=== PATIENT | female | born 1995 | race Caucasian/White ===

== ENCOUNTER → 2017-03-06 13:25 | Outpatient (CLI) | payer MEDICAID, SELFPAY ==
[2017-03-06 15:26] LABS: Chlamydia Trachomatis by PCR Negative (Negative); Neisserai gonorrhoeae by PCR Negative (Negative); Probe Check PASS; Sample Adequacy Control PASS; Specimen Processing Control PASS
== END ==
PROVIDERS: Visit Provider Obstetrics & Gynecology
DX: Z34.83 Encounter for supervision of other normal pregnancy, third trimester (principal); Z11.3 Encounter for screening for infections with a predominantly sexual mode of transmission
CPT/HCPCS: 87491; 87591

== ENCOUNTER → 2017-04-03 15:43 | Outpatient (CLI) | payer MEDICAID, SELFPAY ==
[2017-04-03 17:43] LABS: Absolute Lymphocyte Count 2.64 X10^3/ul (0.83-4.51); Absolute Neutrophil Count 9.2 X10^3/uL (2.0-7.7); Basophil# 0.02 X10^3/uL; Basophil% 0.2 % (0-1); Eosinophil# 0.13 X10^3/uL; Hematocrit 39.4 % (37-47); Hemoglobin 13.4 g/dl (12.0-15.0); Lymphocyte # 2.64 X10^3/ul (4.0); Lymphocyte % 20.5 % (19-41); Mean Corpuscular Volume 88.3 fL (81-99); Mean Platelet Vol. 10.3 fl (6.2-12.0); Monocyte# 0.82 X10^3/uL; Monocyte% 6.4 % (0-10); Neutrophil % 71.6 % (47-70); POSITIVE COUNT NO; POSITIVE DIFFERENTIAL NO; POSITIVE MORPHOLOGY NO; Platelet Count 230 K/mm3 (150-450); RBC Distribution Width CV 13.2 % (11.6-14.6); RBC Distribution Width SD 42.4 fl (35.1-43.9); Red Blood Count 4.46 M/mm3 (4.2-5.4); White Blood Count 12.9 K/mm3 (4.4-11.0)
[2017-04-03 18:05] LABS: Thyroid Stim Hormone (TSH) 1.52 uIU/mL (0.358-3.74)
[2017-04-03 18:20] LABS: Color, Urine Straw (Yellow); Glucose, Dipstick Normal (Normal); Ketone-Dipstick Negative (Negative); Leukocyte Esterase-Dipstick Negative /ul (Negative); Nitrite-Dipstick Negative (Negative); Occult Blood-Urine 10 /ul (Negative); Protein-Dipstick Negative (Negative); Specific Gravity, Urine 1.015 (1.002-1.030); Urine Bilirubin Dipstick Negative (Negative); Urine Clarity Clear (Clear); Urine Urobilinogen Normal (Normal); Urine pH 6.5 (5.0 - 8.0)
[2017-04-03 18:21] LABS: Amphetamine Urine VISTA NEGATIVE (<1000 ng/mL); Barbiturate Urine VISTA NEGATIVE (< 200 ng/mL); Benzodiazepine Urine VISTA NEGATIVE (< 200 ng/mL); Cocaine Urine VISTA NEGATIVE (< 300 ng/mL); Ecstacy Urine VISTA NEGATIVE (< 500 ng/mL); Methadone Urine VISTA NEGATIVE (< 300 ng/mL); PCP Urine VISTA NEGATIVE (< 25 ng/mL); THC Urine VISTA NEGATIVE (< 50 ng/mL); Vista UDS pH Range 6
[2017-04-04 10:25] LABS: HIV - WCH Non-Reactive (Nonreactive); Rubella IgG > 500.0 IU/mL
[2017-04-04 17:35] LABS: Vitamin D,25 Hydroxy 19.8 ng/mL (29.95-100.01)
[2017-04-04 18:06] LABS: ALB/GLOB Ratio 0.8 RATIO (0.9-2.4); AST(SGOT) 24 U/L (15-37); Alanine Aminotransfer ALT/SGPT 40 U/L (13-56); Albumin, Serum 3.3 g/dL (3.2-5.0); Alkaline Phosphatase 81 U/L (45-117); Anion Gap 14 (5-15); BUN 6 mg/dL (7-18); BUN/Creat Ratio 11.8 RATIO (10-20); Chloride 105 mmol/L (98-107); Creatinine, Serum 0.51 mg/dL (0.55-1.02); EST Glomerular Filtration Rate 164 mL/min (>60); Est Glom Filt Rate - Afr Amer 199 mL/min (>60); Glucose 71 mg/dL (74-106); Potassium 3.7 mmol/L (3.5-5.1); Protein, Total 7.3 g/dL (6.4-8.2); Sodium Level 139 mmol/L (136-145)
[2017-04-05 09:33] LABS: HEPATITIS B SURFACE AG Negative (Negative); Hep C Antibodies <0.1 s/co ratio (0.0-0.9)
[2017-04-06 02:54] LABS: Prenatal RPR NONREACTIVE (NONREACTIVE)
== END ==
PROVIDERS: Visit Provider Obstetrics & Gynecology
DX: Z34.82 Encounter for supervision of other normal pregnancy, second trimester (principal)
CPT/HCPCS: 36415; 80053; 80307; 81002; 82306; 84443; 85025; 86703; 86762; 86803; 87340

== ENCOUNTER → 2017-06-05 11:17 | Outpatient (CLI) | payer MEDICAID, SELFPAY ==
[2017-06-05 14:00] LABS: Hematocrit 39.2 % (37-47); Mean Corp Hgb Conc 33.2 g/gl (32-36); Mean Corpuscular Hgb 30.2 pg (27.0-32.0); Mean Platelet Vol. 10.6 fl (6.2-12.0); Platelet Count 211 K/mm3 (150-450); RBC Distribution Width SD 42.5 fl (35.1-43.9); Red Blood Count 4.31 M/mm3 (4.2-5.4); White Blood Count 12.5 K/mm3 (4.4-11.0)
[2017-06-05 14:01] LABS: Glucose Challenge Gest 1H 50g 84 mg/dL (70-140); Scan Indicated on CBC? Y/N NO
[2017-06-06 08:41] LABS: Vitamin D,25 Hydroxy 17.9 ng/mL (29.95-100.01)
== END ==
PROVIDERS: Visit Provider Obstetrics & Gynecology
DX: Z34.82 Encounter for supervision of other normal pregnancy, second trimester (principal)
CPT/HCPCS: 82306; 82950; 85027

== ENCOUNTER → 2017-07-31 15:17 | Outpatient (CLI) | payer MEDICAID, SELFPAY ==
[2017-07-31 17:38] LABS: Group B Strep DNA By PCR Negative (Negative)
[2017-07-31 17:39] LABS: Internal Control PASS; Probe Check PASS; Specimen Processing Control PASS
== END ==
PROVIDERS: Visit Provider Obstetrics & Gynecology
DX: Z36.85 Encounter for antenatal screening for Streptococcus B (principal)
CPT/HCPCS: 87077; 87081; 87186; 87653

== ENCOUNTER → 2017-08-28 18:25 | Outpatient (CLI) | payer MEDICAID, SELFPAY ==
[2017-08-28 18:27] LABS: Bacteria 0 SEEN /hpf (None Seen); Mucous, Urine 0 SEEN /hpf (<or=2+); Red Blood Cells-Urine 0 SEEN /hpf (0-5)
[2017-08-28 19:17] LABS: Color, Urine Yellow (Yellow); Glucose, Dipstick 50 mg/dl (Normal); Ketone-Dipstick Negative (Negative); Leukocyte Esterase-Dipstick 500 /ul (Negative); Nitrite-Dipstick Negative (Negative); Occult Blood-Urine 25 /ul (Negative); Protein-Dipstick 30 mg/dl (Negative); Specific Gravity, Urine 1.025 (1.002-1.030); Urine Bilirubin Dipstick Negative (Negative); Urine Clarity Clear (Clear); Urine Urobilinogen 1 mg/dl (Normal)
[2017-08-28 19:23] LABS: White Blood Cells 10-25 SEEN /hpf (0-5)
[2017-08-28 19:24] LABS: Calcium Oxalate Crystals Ur 1+ /hpf (<or=2+); Squamous Epithelial Cells - UA 5-10 SEEN /hpf (5-10)
== END ==
PROVIDERS: Visit Provider Obstetrics & Gynecology
DX: O23.43 Unspecified infection of urinary tract in pregnancy, third trimester (principal); Z3A.00 Weeks of gestation of pregnancy not specified
CPT/HCPCS: 81001; 87086; 87088; 87186

== ENCOUNTER 2017-09-01 18:35 | Outpatient (CLI) | payer MEDICAID, SELFPAY ==
[2017-09-01 19:43] VITALS: BMI 35.6
--- NOTE | 2017-09-02 08:09 | OB.TRI.NOTE ---
History of Present Illness Date of Service: 09/01/17 Was patient seen by the physician?: No Reason For Visit: R/O LABOR Date of Service: 09/01/17 Final MAMTA: 09/01/17 Final MAMTA Source: US <20 weeks Gestational age: 40 Weeks and 1 Days History of Present Illness: c/o contractions. No leaking fluid. Good movement. Allergies No Known Allergies Allergy (Verified 09/01/17 19:44) Physical Exam General: Alert, Oriented x3, Cooperative, No apparent distress Cardiovascular: Regular rate, Regular Rhythm Lungs: Clear to auscultation, Normal air movement Abdomen: Soft, Non Tender, Non-Distended, Gravid, Appropriate for Gestational Age Extremities:: No edema Neurological: Neuro grossly intact DISHWASHER PREPARER: Normal external genitalia Estimated gestational size: Appropriate for gestational size Presentation: Cephalic Cervix Dilation (cm): 3 Station: -2 Effacement (%): 70 NST - FHR Rate Baby A Baseline: 150s Variability:: Moderate Accelerations:: 15 x 15 Decelerations:: None NST Reactive:: Yes, Appropriate for gestational age FHR Category:: Category I Uterine Activity:: q2 to 5 minutes Impression/Plan No cervical blade changer 2+ hours of observation and cervix unchanged from previous office exams. Will return if labor symptoms increase or has signs of SROM.
--- NOTE | 2017-09-02 08:13 | OB.TRI.HP_ITS ---
History of Present Illness Date of Service: 09/01/17 Was patient seen by the physician?: No Reason For Visit: R/O LABOR Date of Service: 09/01/17 Final MAMTA: 09/01/17 Final MAMTA Source: US <20 weeks Gestational age: 40 Weeks and 1 Days History of Present Illness: c/o contractions. No leaking fluid. Good movement. Allergies No Known Allergies Allergy (Verified 09/01/17 19:44) Physical Exam General: Alert, Oriented x3, Cooperative, No apparent distress Cardiovascular: Regular rate, Regular Rhythm Lungs: Clear to auscultation, Normal air movement Abdomen: Soft, Non Tender, Non-Distended, Gravid, Appropriate for Gestational Age Extremities:: No edema Neurological: Neuro grossly intact GAS DISPATCHER: Normal external genitalia Estimated gestational size: Appropriate for gestational size Presentation: Cephalic Cervix Dilation (cm): 3 Station: -2 Effacement (%): 70 NST - FHR Rate Baby A Baseline: 150s Variability:: Moderate Accelerations:: 15 x 15 Decelerations:: None NST Reactive:: Yes, Appropriate for gestational age FHR Category:: Category I Uterine Activity:: q2 to 5 minutes Impression/Plan No cervical oil change technician 2+ hours of observation and cervix unchanged from previous office exams. Will return if labor symptoms increase or has signs of SROM.
== END 2017-09-01 21:15 | disposition home or self-care (01) ==
LOC: WPOUT 19:12 → WP 09-03 07:38
PROVIDERS: Visit Provider Obstetrics & Gynecology
DX: O47.1 False labor at or after 37 completed weeks of gestation (principal); Z3A.40 40 weeks gestation of pregnancy
CPT/HCPCS: 59025; 59050; 99218; G0378

== ENCOUNTER 2017-09-07 08:45 | Inpatient (IN) | payer MEDICAID, SELFPAY ==
[2017-09-07 09:00] VITALS: BMI 34.3
[2017-09-07] MEDS: Lactated Ringers 1,000 ML 50 ML IV ×4 (09:25→15:22)
[2017-09-07 09:40] LABS: Hematocrit 39.4 % (37-47); Hemoglobin 13.2 g/dl (12.0-15.0); Mean Corp Hgb Conc 33.5 g/gl (32-36); Mean Corpuscular Hgb 29.5 pg (27.0-32.0); Mean Corpuscular Volume 88.1 fL (81-99); Mean Platelet Vol. 10.3 fl (6.2-12.0); Platelet Count 187 K/mm3 (150-450); RBC Distribution Width CV 13.7 % (11.6-14.6); Red Blood Count 4.47 M/mm3 (4.2-5.4); White Blood Count 12.3 K/mm3 (4.4-11.0)
[2017-09-07 09:46] LABS: Scan Indicated on CBC? Y/N NO
[2017-09-07] MEDS: Oxytocin 30 units/NS 500 ml 30 UNITS/500 ML IV.SOLN IV (10:49)
[2017-09-07] MEDS: fentaNYL-bupivacaine (epidural) 100 ML BAG EPIDURAL ×2 (12:30→17:20)
--- NOTE | 2017-09-07 13:31 | PCM.PN.BLA ---
Progress Note LABOR PROGRESS NOTE No pain relief with epidural. AVSS GEN - NAD, AAO x 3 SVE 7/90/-3, cephalic TOCO 3-4/10 min FHR 130, moderate variability, + accelerations, + variable decelerations A/P: 22yo G1 @ 41wga in active labor, Cat II FHR -Maternal and statuses reassuring -Anesthesiology reconsult -Continue in labor
--- NOTE | 2017-09-07 14:36 | PCM.PN.BLA ---
Progress Note LABOR PROGRESS NOTE She is more comfortable with repeat epidural. RN called for prolonged heart rate deceleration. AVSS GEN - NAD, AAO x 3 FHR with 6 minutes prolonged deceleration nadiring to 60 bpm, FHR 130, moderate variability, + decelerations prior to that TOCO 3/10 min SVE 7/90/-3, soft, cephalic A/P: 22yo G1 @ 41wga in active labor, Cat II FHR -FHR recovered with pitocin discontinuation, maternal repositioning and O2 supplementation -Amniotomy performed with meconium. IUPC to be placed to further characterize decelerations late vs. early -Will monitor closely
--- NOTE | 2017-09-07 15:51 | NURSING ---
Dr Sheppard recalled at 1150.
[2017-09-07] MEDS: Oxytocin 30 units/NS 500 ml 30 UNITS/500 ML IV.SOLN 334 UNITS IV (19:15)
[2017-09-07] MEDS: Oxytocin 30 units/NS 500 ml 30 UNITS/500 ML IV.SOLN 167 UNITS IV (19:45)
--- NOTE | 2017-09-07 19:47 | PCM.OB.VAG ---
- Problem List (1) 41 weeks gestation of Status: Acute (2) Vacuum extractor delivery, delivered Status: Acute Vaginal Delivery Maternal Presentation: Active Labor Method of Induction: - - Pitocin augmentation Amniotic Membrane Rupture Type: Artificial Rupture of Membrane time: 1432h 09/07/17 Amniotic Fluid Description: Thick meconium Final MAMTA: 08/31/17 Final MAMTA Source: US <20 weeks Gestational age: 41 Weeks and 0 Days doctor who attended delivery (if requested by OB): Marta Gallagher Date of Procedure: 09/07/17 Pre-Operative Diagnosis: 41 wga, Cat II FHR, meconium Post-Operative Diagnosis: 41wga, Cat II FHR, meconium Surgery/ Procedure Performed: Vacuum Assisted Vaginal Delivery Anesthesiologist: Shad Sheppard Type of Anesthesia: Epidural Description of Procedure: Patient was FD/+3. GAIL on my arrival pushing with Cat II FHR. She continued to push with excellent maternal effort. I advised vacuum assistance following prolonged decelerations. Reviewed vacuum indications and risks. The patient agreed to proceed. The Kiwi cap was placed at the flexion point and 500mmHg suction applied. A single pull was performed with deliver of the head and no pop offs. The suction was released. A vigorous male infant delivered. The infant was placed on the maternal abdomen and further attended by the Pediatric Hospitalist and nursery personnel. The cord was doubly clamped and cut at 5 minutes of life. Cord gases and cord blood was obtained. The placenta delivered spontaneously and appeared intact. An intrauterine exam was performed to remove retained trailing membranes. IV pitocin was started. Bilateral sulcal lacerations with labial extensions were repaired using 2-0 Vicryl and 3-0 Vicryl Rapide. Hemostasis was attained. Sponge and needle counts correct x 2 Presentation: Vertex, GAIL Placental Delivery Description: Spontaneous Placenta Disposition: [facility] Cord Vessel Description: 3 Vessels Cord Gases drawn per routine: ABG, VBG Cord Entanglement: None Drain: Schaffer to straight drain Estimated Blood Loss: 450 Infant A gender: Male (1 minute): 8 (5 minute): 9 Episiotomy Description: None Laceration: Vaginal Extension/lac, 2nd degree Medications given after delivery: IV Pitocin Complications: None
--- NOTE | 2017-09-07 20:08 | DCINST_ITS ---
Discharge Diet: No Restrictions Discharge Activity: Return to Normal Activity, May Shower, May Take a Tub Bath May resume sexual activity in: 6 weeks Lifting Restrictions: 20 lb Call your doctor if you observe: Fever of 101 or Higher, Inability to urinate, Inability to have a bowel movement, Using more than one pad per hour, Shortness of breath, Chest pain, Calf discomfort, Uncontrolled pain Suture Line Care: Avoid Pulling/Pushing Additional Instructions: If you experience any of the following, contact your healthcare provider. * Bleeding that soaks a pad every hour for 2 hours * Fever 100.4 or higher * Unrelieved incision or abdominal pain * Swelling, redness, discharge or bleeding from your incision or episiotomy site * Your incision begins to separate * Problems urinating (including inability to urinate or burning while urinating) . * Visual changes * Severe headache * Flu-like symptoms * Pain or redness in one of both of your breasts * Pain, warmth, tenderness or swelling in your legs, especially the calf area * Frequent nausea and vomiting * Symptoms of depression or anxiety If you experience any of the following, call 911 or go to the nearest Emergency Room. * Chest pain * Problems breathing * Seizure activity * Partial or complete paralysis of a body part, slurred speech, weakness or drooping of the face, or a sudden inability to walk or hold your balance Allergies/Adverse Reactions: Allergies No Known Allergies Allergy (Verified 09/01/17 19:44) Medications to take at Discharge Vits [Prenatabs FA] 1 tablet PO DAILY 09/01/17 Ibuprofen 600 mg PO TID PRN #30 tab 09/07/17 The following prescriptions were given: Ibuprofen 600 mg PO TID PRN #30 tab PRN Reason: Pain Please Follow Up With: Sona Keen MD When: 6 weeks Primary Care Physician: Care Physician,No Primary [Primary Care Provider] - Test Results: Test results from this visit will be discussed in further detail at your follow- up appointment, if applicable.
[2017-09-07] MEDS: Ibuprofen 600 MG Tablet PO (23:00)
[2017-09-08] VITALS: BP 103/60; PULSE 103; RESP 17; TEMP 37.1
[2017-09-08 04:00] VITALS: BP 114/72; PULSE 70; RESP 17
[2017-09-08] MEDS: Ibuprofen 600 MG Tablet PO ×3 (07:50→20:39)
[2017-09-08 07:52] VITALS: BP 111/69; PULSE 79; RESP 18; TEMP 36.3
[2017-09-08] MEDS: Prenatal Vits Tablet 1 TABLET PO (10:25)
--- NOTE | 2017-09-08 10:38 | PCM.PN.OB ---
Patient Problems: Active and Suspected Problems 41 weeks gestation of (Acute) Vacuum extractor delivery, delivered (Acute) Subjective: No issues overnight. She is sore. is nursing well, they are working on latch. Denies heavy lochia. Objective: avss - Physical Exam General: Alert, Oriented x3, Cooperative, No apparent distress HEENT: Atraumatic, Normocephalic Lungs: Clear to auscultation, Normal air movement Cardiovascular: Regular rate, Regular Rhythm, Normal S1, Normal S2 Abdomen: Bowel Sounds Present, Soft, Non Tender, Non-Distended Extremities: No edema, No Calf Tenderness Neurological: Neuro grossly intact Psych/Mental Status: Normal Affect, Appropriate, Alert and oriented to time, place, person, mood and affect Vital Signs Temp Pulse Resp BP 97.3 F L 79 18 111/69 09/08/17 07:52 09/08/17 07:52 09/08/17 07:52 09/08/17 07:52 Oxygen Delivery Method Room Air Weight: 85.2 kg Body Mass Index (BMI) 34.3 Intake and Output for Last 24 Hours 09/06/17 09/07/17 09/08/17 23:59 23:59 23:59 Intake Total 2952 / 2952 Output Total 800 / 800 Balance 2152 / 2152 Medical Necessity - Tobacco Use Smoking Status: Never smoker Assessment/Plan All Active Problems 41 weeks gestation of (Acute) Vacuum extractor delivery, delivered (Acute) 22yo PPD#1 s/p VAVD doing well. -Rh positive - -Routine care
[2017-09-08 12:44] VITALS: BP 96/64; PULSE 71; RESP 18; TEMP 36.8
[2017-09-08] MEDS: Dibucaine 30 GM Tube 1 APPLIC TOPICAL (14:52)
[2017-09-08 14:54] VITALS: BP 122/76; PULSE 87; RESP 18; TEMP 36.8
[2017-09-08 20:15] VITALS: BP 123/81; PULSE 81; RESP 16; TEMP 37.3; O2SAT 98
[2017-09-09 03:05] VITALS: BP 119/78; PULSE 83; RESP 16; TEMP 37.5; O2SAT 98
[2017-09-09] MEDS: Ibuprofen 600 MG Tablet PO ×2 (04:10→10:20)
[2017-09-09 08:00] VITALS: BP 112/76; PULSE 749; RESP 18; TEMP 36.7
--- NOTE | 2017-09-09 09:27 | PCM.PN.OB ---
Patient Problems: Active and Suspected Problems 41 weeks gestation of (Acute) Vacuum extractor delivery, delivered (Acute) Subjective: No issues overnight. She has some nipple pain and had blistering so is bottlefeeding now. She would like to return to pumping later. Denies heavy lochia. Objective: avss - Physical Exam General: Alert, Oriented x3, Cooperative, No apparent distress HEENT: Atraumatic, Normocephalic Lungs: Clear to auscultation, Normal air movement Cardiovascular: Regular rate, Regular Rhythm, Normal S1, Normal S2 Abdomen: Soft, Non Tender, Non-Distended, - - Fundus firm and nontender, lochia scant Extremities: No edema, No Calf Tenderness Neurological: Neuro grossly intact Psych/Mental Status: Normal Affect, Appropriate, Alert and oriented to time, place, person, mood and affect Comment: Bilateral breast exam performed - no cracks or sores on nipples today Vital Signs Temp Pulse Resp BP Pulse Ox 98.1 F 749 H 18 112/76 98 09/09/17 08:00 09/09/17 08:00 09/09/17 08:00 09/09/17 08:00 09/09/17 03:05 Oxygen Delivery Method Room Air Weight: 85.2 kg Body Mass Index (BMI) 34.3 Intake and Output for Last 24 Hours 09/07/17 09/08/17 09/09/17 23:59 23:59 23:59 Intake Total 2952 / 2952 Output Total 800 / 800 Balance 2152 / 2152 Medical Necessity - Tobacco Use Smoking Status: Never smoker Assessment/Plan All Active Problems 41 weeks gestation of (Acute) Vacuum extractor delivery, delivered (Acute) 22yo PPD#2 s/p VAVD doing well. -Rh positive - and bottlefeeding - encouraged continued Lanolin application. May call office for triple nipple ointment if has cracks or sores. -Routine care -d/c home today
--- NOTE | 2017-09-09 11:52 | NURSING ---
Pt aware that Dr Keen desires for pt to have a follow-up phone call by social service for community resources; pt is and she and seperated for a short time at beginning of so could work on things. Pt and are now living together; supportive during stay in hospital and asking appropriate questions and involved with baby care.
--- NOTE | 2017-09-13 19:37 | NURSING ---
Follow up phone call done and patient states she is doing well and denies needs at this time she says she was very satisfied with her care.
== END 2017-09-09 12:25 | disposition home or self-care (01) | DRG 373 ==
PROVIDERS: Admitting Provider Obstetrics & Gynecology; Visit Provider Obstetrics & Gynecology
DX: O76 Abnormality in fetal heart rate and rhythm complicating labor and delivery (principal); O77.0 Labor and delivery complicated by meconium in amniotic fluid; O48.0 Post-term pregnancy; O70.1 Second degree perineal laceration during delivery; O99.824 Streptococcus B carrier state complicating childbirth; O99.354 Diseases of the nervous system complicating childbirth; G43.909 Migraine, unspecified, not intractable, without status migrainosus; O99.89 Other specified diseases and conditions complicating pregnancy, childbirth and the puerperium; H54.7 Unspecified visual loss; Z3A.41 41 weeks gestation of pregnancy; Z37.0 Single live birth
CPT/HCPCS: 59025; 59050; 85027; 86850; 86900; 99218; J7120; G0378

== ENCOUNTER → 2018-07-11 10:41 | Outpatient (CLI) | payer MEDICAID, SELFPAY ==
[2018-07-11 13:23] LABS: Thyroid Stim Hormone (TSH) 1.03 uIU/mL (0.358-3.74)
== END ==
PROVIDERS: Visit Provider Obstetrics & Gynecology
DX: Z12.4 Encounter for screening for malignant neoplasm of cervix (principal); N92.6 Irregular menstruation, unspecified
CPT/HCPCS: 36415; 84443; 88175; G0145